=== PATIENT | female | born 1990 ===

== ENCOUNTER 2016-10-08 18:51 | Inpatient (IN) | payer MEDICAID ==
[2016-10-08 19:01] VITALS: BMI 31.7
[2016-10-08] MEDS ORDERED: Lactated Ringer's 1,000 ML IV SCH (20:00)
[2016-10-08 20:13] LABS: BASO % 0.3 % (0.0-2.0); EOS # 0.1 K/uL (0.0-0.7); EOS % 0.6 % (0.0-4.0); HEMATOCRIT 32.8 % (34.0-47.0); LYMPH # 1.9 K/uL (1.0-4.3); LYMPH % 18.7 % (20.0-40.0); MEAN CORPUSCULAR HEMOGLOBIN 21.7 pg (27.0-31.0); MEAN CORPUSCULAR HGB CONC 31.2 g/dL (33.0-37.0); MEAN PLATELET VOLUME 10.6 fL (7.2-11.7); MONO # 1.1 K/uL (0.0-0.8); MONO % 11.1 % (0.0-10.0); RED CELL DISTRIBUTION WIDTH 16.6 % (11.5-14.5)
[2016-10-08 20:14] LABS: MEAN CELL VOLUME 69.7 fL (81.0-99.0)
[2016-10-08 20:22] LABS: RBC URINE < 1 /hpf (0-3); URINE BACTERIA RARE (<OCC); URINE BILIRUBIN NEGATIVE (NEGATIVE); URINE BLOOD NEGATIVE (NEGATIVE); URINE COLOR Yellow (YELLOW); URINE GLUCOSE (UA) NORMAL (Normal); URINE KETONE NEGATIVE (NEGATIVE); URINE LEUKOCYTE ESTERASE NEG Leu/uL (Negative); URINE PROTEIN NEGATIVE (NEGATIVE); URINE UROBILINOGEN NORMAL mg/dL (0.2-1.0); WBC URINE 1 /hpf (0-5)
[2016-10-08 20:24] LABS: CHLORIDE 101 mmol/L (98-107); SODIUM 134 mmol/L (132-148)
[2016-10-08 20:25] LABS: POTASSIUM 5.4 mmol/L (3.6-5.2)
[2016-10-08 20:26] LABS: ALKALINE PHOSPHATASE 172 U/L (38-126); AST/SGOT 65 U/L (14-36); BILIRUBIN,TOTAL 1.4 mg/dL (0.2-1.3); CARBON DIOXIDE 23 mmol/L (22-30); GFR AFRICAN-AMERICAN > 60; TOTAL PROTEIN 7.8 g/dL (6.3-8.3)
[2016-10-08 20:27] LABS: ALT/SGPT 13 U/L (9-52); BLOOD UREA NITROGEN 6 mg/dL (7-17); CALCIUM 8.3 mg/dl (8.6-10.4); GLUCOSE,RANDOM 69 mg/dL (65-105)
[2016-10-08] MEDS ORDERED: Benzocaine/Menthol 20%-0.5% Topical Spray (60 ml) TOP PRN (21:45)
[2016-10-08] MEDS ORDERED: Oxycodone/Acetaminophen 5/325 mg Tab PO PRN ×2 (21:45)
--- NOTE | 2016-10-09 05:52 | OBHP ---
Datetime: 10/08/2016 19:55 IP Adm Impression: Term, intrauterine ; Active labor IP Admit Plan: Admit to unit; Initiate labor protocol Admit Comment, IP Provider: 26 yo , PIPPA 10/10/16 EGA 40w 5d c/o Ctx since 0900 hours. (+) AFM ; denies LOF. No issues P Ob: x 3; last one 2014, "almost 9lbs". 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 Denies STIs PMH: denies PSH: denies MKDA Meds: PNV Soc Hx: denies tobacco, illicit drug or EtOH use. With FOB x 4 years Fam Hx: Mother alive 40 + Father alive 40+ - both, no med issues. P.E.: as above. WD in pain with contractions. Awake, alert, oriented to time, person and place. Assessment: 26 yo P3013, 40w 5d, active labor. GBS (-). Category 1 tracing. Clinically stable. Plan: 1) Admit 2) NPO 3) Continuous EFM 4) Admission labs 5) Anticipate vaginal delivery Pelvic Type - PN: Adequate Extremities - PN: Normal Abdomen - PN: Normal Back - PN: Normal Breast - PN: Not Done Lungs - PN: Normal Heart - PN: Normal Thyroid - PN: Not Done Neurologic - PN: Normal HEENT - PN: Normal General - PN: Normal Presentation-Admit: Vertex FHR - Baseline A Provider: 140 Membranes, Provider: Intact Contraction Comments Provider: 1-3 minutes Comments, ACOG Physical Exam: Abdomen: gravid. Firm with contractions Fundal height 40 cm All other systems reviewed and are negative Gestation - Est Wks by US: 39w 5d IP Hx Assessment: The History has been Reviewed and is Current EGA AdmitDate IP: 39.5 IP Indication for Induction: Not Applicable IP Chief Complaint: Uterine contractions NICHD Variability Prov Fetus A: Moderate 6-25bpm NICHD Accel Fetus A IP Provider: 15X15 FHR Category Provider Fetus A: Category I NICHD Decel Fetus A IP Provider: None Dilatation, Provider: 4 Effacement, Provider: 60 Station, Provider: -3 Genitourinary Exam: Normal DTRs - PN: Not Done
--- NOTE | 2016-10-09 05:59 | OBDS ---
DELIVERY PERSONNEL Delivery Doctor: Josr Haas MD Financial Reporting Manager: Bing Joseph RN Anesthesiologist: none MATERNAL INFORMATION Delivery Anesthesia: None Medications in Delivery: pitocin 20 units Estimated Blood Loss (ml): 200 Placenta Cultured: No Maternal Complications: None RN Comments: to a live baby boy with 01/24 Provider Comments: Uncomplicated vaginal delivery live male infant, MARIELLE position, weight 8lb 4oz, Ap gars 01/24. Spontaneous delivery placenta - grossly intact, 3 vessel cord Cervix, vagina, perineum inspected - no lacerations. Patient tolerated procedure well; bonding with ; both in stable conditoin LABOR SUMMARY EDC: 10/10/2016 00:00 No. Babies in Womb: 1 Attempted: No Labor Anesthesia: None LABOR INFORMATION Complete Dilatation: 10/08/2016 21:05 Group B Beta Strep: Negative Steroids Given: None Reason Steroids Not Administered: Not Applicable MEMBRANES Membranes Rupture Method: Spontaneous Rupture of Membranes: 10/08/2016 21:05 Length of Rupture (hrs): 0.08 Amniotic Fluid Color: Clear Amniotic Fluid Amount: Moderate Amniotic Fluid Odor: Normal STAGES OF LABOR Stage 2 hrs: 0 Stage 2 min: 5 Stage 3 hrs: 0 Stage 3 min: 17 VAGINAL DELIVERY Episiotomy: None Laceration Extension: N/A Laceration Type: None Laceration Repair: Not Applicable Initial Vag Sponge Count: 10 Final Vag Sponge Count: 10 Initial Vag Sharps Count: 0 Count Comment: Correct BABY A INFORMATION Delivery Date/Time: 10/08/2016 21:10 Method of Delivery: Vaginal Born in Route : No : N/A Forceps: N/A Vacuum Extraction: N/A Shoulder Dystocia : No SHOULDER DYSTOCIA BABY A Delivery Date/Time: 10/08/2016 21:10 PRESENTATION/POSITION BABY A Presentation: Cephalic Cephalic Presentation: Vertex Vertex Position: Right Occipital Anterior Breech Presentation: N/A PLACENTA INFORMATION BABY A Placenta Delivery Time : 10/08/2016 21:27 Placenta Method of Delivery: Spontaneous Placenta Status: Delivered (Annotations: Data stored by N on behalf of user) SCORES BABY A Heart Rate 1 min: >100 bpm Resp Effort 1 min: Good Cry Reflex Irritability 1 min: Cough or Sneeze or Pulls Away Muscle Tone 1 min: Active Motion Color 1 min: Body [place], Extremities Blue SCORE 1 MIN: 9 Heart Rate 5 min: >100 bpm Resp Effort 5 min: Good Cry Reflex Irritability 5 min: Cough or Sneeze or Pulls Away Muscle Tone 5 min: Active Motion Color 5 min: Body [place], Extremities Blue SCORE 5 MIN: 9 INFORMATION BABY A Gestational Age at Delivery: 39.5 Gestational Status: Term Outcome : Liveborn Condition : Stable Infant Sex: Male IDENTIFICATION/MEDS BABY A ID Band Number: [id number] ID Band Location: Left Leg; Left Arm Sensor Applied: Yes Sensor Number: [id number] Sensor Location : Cord Clamp WEIGHT/LENGTH BABY A Infant Birthweight (gms): 3735 Weight (lb): 8 Infant Weight (oz): 4 Length Inches: 20.00 Infant Length cms: 50.8 CORD INFORMATION BABY A No. Cord Vessels: 3 Nuchal Cord : N/A Cord Blood Taken: Yes
[2016-10-09 07:31] LABS: HEMATOCRIT 28.2 % (34.0-47.0); MEAN CORPUSCULAR HEMOGLOBIN 21.8 pg (27.0-31.0); MEAN CORPUSCULAR HGB CONC 31.6 g/dL (33.0-37.0); MEAN PLATELET VOLUME 10.7 fL (7.2-11.7); RED CELL DISTRIBUTION WIDTH 16.5 % (11.5-14.5); WHITE BLOOD COUNT 12.9 K/uL (4.8-10.8)
--- NOTE | 2016-10-09 08:05 | OBPPN ---
Datetime: 10/09/2016 07:52 PP Pain Prov: Within normal limits PP Nausea Prov: Denies PP Flatus Prov: Yes PP Breasts Prov: Normal PP Heart Prov: Normal PP Lungs Prov: Normal PP Abdomen/Uterus Prov: Normal PP Lochia Prov: Normal PP Vulva/Perineum Prov: Normal PP CVA Tenderness Prov: Normal PP Extremities Prov: Normal PP C/S Incision Prov: Not Applicable PP Progress Prov: Normal PP Impression Prov: Normal progression PP Plan Prov: Continue present management PP Progress Note Prov: S-patient denies any complaints.Pain well controlled.Denies nausea, vomiting, headache. chest pain, shortness of breath, numbness or tingling in hands and feet O-VSS Afebrile Fundus firm and below umbilcius Extremities no calf tenderness A/P Patient s/p vaginal delivery PPD 1 doing well -continue routine pp care -follow up am [facility] -anticipate discharge tomorrow Vital Signs Provider PP: Reviewed; Within Normal Limits
[2016-10-09] MEDS: Multiple Vitamins Tab PO SCH (09:47)
--- NOTE | 2016-10-10 08:19 | OBPPN ---
Datetime: 10/10/2016 08:17 PP Pain Prov: Within normal limits PP Nausea Prov: Denies PP Flatus Prov: Yes PP Abdomen/Uterus Prov: Normal PP Lochia Prov: Normal PP Extremities Prov: Normal PP Comments Phys Exam Prov: fudus below umblicus ext no edema,no calf PP Impression Prov: Normal progression PP Plan Prov: Discharge PP Progress Note Prov: pt was seen at bed side, pain under control,no n/v, tolerating deit,voiding,m in lochias,flatus + ppd#2 s/p dc home no sex motrin prn f/u in clinic in 6week Vital Signs Provider PP: Reviewed; Within Normal Limits
--- NOTE | 2016-10-10 08:21 | OBDCSUM ---
Datetime: 10/10/2016 08:18 Discharged to, Provider: Home Follow up at, Provider: 6week Disch Instr Activity: Normal activity Disch Instr Diet: Regular Discharge Diagnosis, Provider: Term Delivered Follow up in weeks, Provider: clinic Disch Activity Restrictions: No exercising; No lifting; No driving; Minimize walking; Minimize stair -climbing; No sexual activity; Nothing in vagina - [place], tampons, douche Discharge Comment, Provider: no sex motrin prn f/u in 6weeks
[2016-10-10 08:34] VITALS: BP 118/81; PULSE 88; RESP 18; TEMP 97.9; O2SAT 99
[2016-10-10] MEDS: Multiple Vitamins Tab PO SCH (10:13)
== END 2016-10-10 19:17 | disposition home or self-care (01) | DRG 373 ==
LOC: C.EROB 18:51 → C.4D 19:13 → C.4M 23:11
PROVIDERS: ADMIT Obstetrics & Gynecology; ATTEND Obstetrics & Gynecology
PROC: 10E0XZZ Delivery of Products of Conception, External Approach (ICD-10-PCS; principal; 2016-10-08)
DX: O48.0 Post-term pregnancy (principal); Z37.0 Single live birth; Z3A.40 40 weeks gestation of pregnancy

== ENCOUNTER 2016-10-17 22:37 | Emergency (ER) | payer MEDICAID ==
[2016-10-17 22:37] VITALS: BMI 31.7
== END 2016-10-17 23:26 | disposition left against medical advice (07) ==
LOC: C.ER 22:37
DX: R05 Cough (principal); Z02.9 Encounter for administrative examinations, unspecified